=== PATIENT | male | born 1955 | race African-American/Black ===

== ENCOUNTER 2025-05-28 13:05 | Emergency (ER) | payer OTHER | END 2025-05-28 16:05 | LOC: NAV ERS 13:05 | DX: Z43.0 Encounter for attention to tracheostomy (principal); E11.9 Type 2 diabetes mellitus without complications; E03.9 Hypothyroidism, unspecified; Z79.82 Long term (current) use of aspirin; Z79.890 Hormone replacement therapy; Z79.84 Long term (current) use of oral hypoglycemic drugs; Z79.4 Long term (current) use of insulin | CPT/HCPCS: 99283 ==